=== PATIENT | male | born 1960 | race American Indian/Alaskan Native ===

== ENCOUNTER 2019-04-28 11:16 | Emergency (ER) | payer OTHER ==
[~2019-04-28] VITALS: Ht 177.8 cm; Wt 65.8 kg
[~2019-04-28 11:16] MED LIST: AMOX250 PO; CARI350 PO; CEPH500 PO; CIPR500 PO; CRUTCH4 USE; CYCL10 PO; DIAZ5 PO; HYDACE25S PR; HYDACE5 PO; NAPR375 PO; NAPR500 PO; Norco 7.5-3251 EACH PO; OMEP20ER PO; OXYACE7.5T PO; RXHYDACE PO; SULF10OPSA OS; TAMS.4ER PO; TRAM50 PO
[2019-04-28 11:31] LABS: Source, Urine Clean Catch
[2019-04-28 11:41] LABS: Bilirubin, Urine Neg (Neg); Blood, Urine Neg (Neg); Glucose Qualitative, Urine Neg (Neg); Ketones, Urine Neg (Neg); Leukocyte Esterase, Urine Neg (Neg); Nitrite, Urine Neg (Neg); Protein, Urine Neg (Neg); Urobilinogen, Urine NORM (Normal)
[2019-04-28 11:56] LABS: Appearance, Urine Clear (Clear); Color, Urine Yellow (P-Yellow)
[2019-04-28 12:03] LABS: BASOPHILS ABSOLUTE AUTO 0.08 K/mm3 (0.00-0.23); BASOPHILS PERCENT AUTO 1 % (0-2); EOSINOPHILS ABSOLUTE AUTO 0.26 K/mm3 (0.00-0.68); EOSINOPHILS PERCENT AUTO 3 % (0-6); Hematocrit 46.9 % (37.0-53.0); Hemoglobin 15.2 g/dL (13.5-17.5); IMMATURE GRAN ABSOLUTE AUTO 0.02 K/mm3 (0.00-0.10); IMMATURE GRAN PERCENT AUTO 0 % (0-1); LYMPHOCYTES ABSOLUTE AUTO 2.13 K/mm3 (0.84-5.20); LYMPHOCYTES PERCENT AUTO 28 % (21-46); MONOCYTES ABSOLUTE AUTO 0.76 K/mm3 (0.16-1.47); MONOCYTES PERCENT AUTO 10 % (4-13); Mean Corpuscular HGB 30.1 pg (26.0-34.0); Mean Corpuscular HGB Conc 32.4 g/dL (31.5-36.5); Mean Corpuscular Volume 93 fL (80-100); Mean Platelet Volume 10.8 fL (9.1-12.4); NEUTROPHILS ABSOLUTE AUTO 4.37 K/mm3 (1.96-9.15); NEUTROPHILS PERCENT AUTO 57 % (41-73); Platelet Count 248 K/mm3 (150-400); RDW Coefficient Variation 13.7 % (11.7-14.2); RDW Standard Deviation 46.5 fL (35.1-46.3); Red Blood Cell Count 5.05 M/mm3 (4.30-5.90); White Blood Cell Count 7.62 K/mm3 (4.00-11.30)
[2019-04-28 12:22] LABS: Alanine Aminotransfer (ALT/SGP 50 U/L (12-78); Albumin, Blood 3.4 g/dL (3.4-5.0); Albumin/Globulin Ratio 0.8 (0.8-1.8); Alk Phos 160 U/L (50-136); Anion Gap 3 mmol/L (6-16); Aspartate Aminotrans (AST/SGOT 33 U/L (12-37); Bilirubin, Total 0.4 mg/dL (0.1-1.0); Blood Urea Nitrogen 18 mg/dL (8-24); Bun/Creatinine Ratio 20.3 (12.0-20.0); CO2, Blood 29 mmol/L (21-32); Calcium, Blood 9.1 mg/dL (8.5-10.1); Chloride, Blood 106 mmol/L (98-108); Creatinine, Blood 0.89 mg/dL (0.60-1.20); Globulin, Blood 4.4 g/dL (2.2-4.0); Glomerular Filtration Rate >60 (60-); Glucose, Blood 88 mg/dL (70-99); Potassium, Blood 4.5 mmol/L (3.5-5.5); Sodium, Blood 138 mmol/L (136-145); Total Protein, Blood 7.8 g/dL (6.4-8.2)
[2019-04-28] MEDS ORDERED: Flomax0.4 MG PO (12:42)
== END 2019-04-28 12:50 | disposition home or self-care (01) ==
LOC: ER 11:16
PROVIDERS: Emergency Medicine
DX: N40.1 Benign prostatic hyperplasia with lower urinary tract symptoms (principal); F17.210 Nicotine dependence, cigarettes, uncomplicated
CPT/HCPCS: 36415; 76770; 80053; 81003; 83690; 85025; 96360; 99284-25; J7030

== ENCOUNTER 2019-06-03 03:45 | Emergency (ER) | payer OTHER ==
[~2019-06-03] VITALS: Ht 177.8 cm; Wt 73.5 kg
[~2019-06-03 03:45] MED LIST changes: +Flomax0.4 MG PO
== END 2019-06-03 05:18 | disposition home or self-care (01) ==
LOC: ER 03:45
DX: M25.462 Effusion, left knee (principal); F17.210 Nicotine dependence, cigarettes, uncomplicated
CPT/HCPCS: 73562-LT; 99283-25; J1885

== ENCOUNTER 2019-11-11 11:24 | Emergency (ER) | payer OTHER ==
[~2019-11-11] VITALS: Ht 177.8 cm; Wt 65.8 kg
[2019-11-11] MEDS ORDERED: Monodox100 MG PO (12:26)
== END 2019-11-11 12:35 | disposition home or self-care (01) ==
LOC: ER 11:24
DX: L02.211 Cutaneous abscess of abdominal wall (principal); F17.210 Nicotine dependence, cigarettes, uncomplicated
CPT/HCPCS: 10060; 99282-25

== ENCOUNTER 2020-11-25 17:35 | Emergency (ER) | payer OTHER ==
[~2020-11-25] VITALS: Ht 177.8 cm; Wt 981.1 kg
[~2020-11-25 17:35] MED LIST changes: +Monodox100 MG PO
== END 2020-11-25 19:19 | disposition home or self-care (01) ==
LOC: ER 17:35
DX: T15.91XA Foreign body on external eye, part unspecified, right eye, initial encounter (principal); F17.210 Nicotine dependence, cigarettes, uncomplicated; Z79.899 Other long term (current) drug therapy; Y93.89 Activity, other specified
CPT/HCPCS: 99283; A9270

== ENCOUNTER 2021-04-07 15:37 | Emergency (ER) | payer OTHER ==
[~2021-04-07] VITALS: Ht 177.8 cm; Wt 73.0 kg
[2021-04-07 16:33] LABS: BASOPHILS ABSOLUTE AUTO 0.03 K/mm3 (0.00-0.23); BASOPHILS PERCENT AUTO 0 % (0-2); EOSINOPHILS ABSOLUTE AUTO 1.14 K/mm3 (0.00-0.68); EOSINOPHILS PERCENT AUTO 8 % (0-6); Hematocrit 46.6 % (37.0-53.0); Hemoglobin 15.6 g/dL (13.5-17.5); IMMATURE GRAN ABSOLUTE AUTO 0.06 K/mm3 (0.00-0.10); IMMATURE GRAN PERCENT AUTO 0 % (0-1); LYMPHOCYTES PERCENT AUTO 9 % (21-46); MONOCYTES ABSOLUTE AUTO 0.91 K/mm3 (0.16-1.47); MONOCYTES PERCENT AUTO 6 % (4-13); Mean Corpuscular HGB 29.9 pg (26.0-34.0); Mean Corpuscular HGB Conc 33.5 g/dL (31.5-36.5); Mean Corpuscular Volume 89 fL (80-100); Mean Platelet Volume 10.7 fL (9.1-12.4); NEUTROPHILS ABSOLUTE AUTO 11.46 K/mm3 (1.96-9.15); NEUTROPHILS PERCENT AUTO 76 % (41-73); Platelet Count 283 K/mm3 (150-400); RDW Coefficient Variation 13.7 % (11.7-14.2); RDW Standard Deviation 45.3 fL (35.1-46.3); Red Blood Cell Count 5.21 M/mm3 (4.30-5.90)
[2021-04-07 16:43] LABS: Alanine Aminotransfer (ALT/SGP 127 U/L (12-78); Albumin, Blood 3.1 g/dL (3.4-5.0); Albumin/Globulin Ratio 0.6 (0.8-1.8); Alk Phos 138 U/L (50-136); Anion Gap 5 mmol/L (6-16); Aspartate Aminotrans (AST/SGOT 68 U/L (12-37); Bilirubin, Total 0.2 mg/dL (0.1-1.0); Blood Urea Nitrogen 17 mg/dL (8-24); Bun/Creatinine Ratio 18.2 (12.0-20.0); CO2, Blood 25 mmol/L (21-32); Calcium, Blood 8.7 mg/dL (8.5-10.1); Chloride, Blood 109 mmol/L (98-108); Creatinine, Blood 0.93 mg/dL (0.60-1.20); Globulin, Blood 5.1 g/dL (2.2-4.0); Glomerular Filtration Rate >60 (60-); Glucose, Blood 114 mg/dL (70-99); Potassium, Blood 3.6 mmol/L (3.5-5.5); Sodium, Blood 139 mmol/L (136-145); Total Protein, Blood 8.2 g/dL (6.4-8.2)
[2021-04-07 18:08] LABS: Source, Urine Voided
[2021-04-07 18:12] LABS: Appearance, Urine Clear (Clear); Bilirubin, Urine Neg (Neg); Blood, Urine 1+ (Neg); Color, Urine Yellow (P-Yellow); Glucose Qualitative, Urine Neg (Neg); Ketones, Urine Neg (Neg); Leukocyte Esterase, Urine 1+ (Neg); Nitrite, Urine Neg (Neg); Protein, Urine 2+ (Neg); Urobilinogen, Urine 1+ (Normal)
[2021-04-07 18:29] LABS: Bacteria Mod /hpf; Calcium Oxalate Crystals Many /hpf; Red Blood Cells, Urine 0-2 /hpf (0-2); Squamous Epithelial Cells Not Seen /hpf (Few); U Amphetamine Screen DETECTED; U Barbituate Screen Not Detected; U Benzodiazapine Screen Not Detected; U Buprenorphine Screen Not Detected; U Cannabinoids Screen Not Detected; U Cocaine Screen Not Detected; U Methadone Screen Not Detected; U Methamphetamine Screen DETECTED; U Opiates Screen Not Detected; U Oxycodone Screen Not Detected; U Phencyclidine Screen Not Detected; U Propoxyphene Screen Not Detected; White Blood Cells, Urine 0-2 /hpf (0-5)
[2021-04-07] MEDS ORDERED: CEPH500 PO (19:01)
== END 2021-04-07 19:45 | disposition home or self-care (01) ==
LOC: ER 15:37
PROVIDERS: Emergency Medicine
DX: L03.116 Cellulitis of left lower limb (principal); F19.10 Other psychoactive substance abuse, uncomplicated; R74.01 Elevation of levels of liver transaminase levels; F17.210 Nicotine dependence, cigarettes, uncomplicated
CPT/HCPCS: 36415; 71046; 80053; 81001; 85025; 87086; 96365; 96375; 99284-25; A9270; J0690; J1200; J1885; J2765; J7030; J7120

== ENCOUNTER 2021-06-28 19:12 | Emergency (ER) | payer OTHER ==
[~2021-06-28] VITALS: Ht 177.8 cm; Wt 63.5 kg
[2021-06-28 20:52] LABS: BASOPHILS ABSOLUTE AUTO 0.07 K/mm3 (0.00-0.23); BASOPHILS PERCENT AUTO 1 % (0-2); EOSINOPHILS ABSOLUTE AUTO 0.33 K/mm3 (0.00-0.68); EOSINOPHILS PERCENT AUTO 5 % (0-6); Hematocrit 48.9 % (37.0-53.0); Hemoglobin 15.9 g/dL (13.5-17.5); IMMATURE GRAN ABSOLUTE AUTO 0.02 K/mm3 (0.00-0.10); IMMATURE GRAN PERCENT AUTO 0 % (0-1); LYMPHOCYTES ABSOLUTE AUTO 1.61 K/mm3 (0.84-5.20); LYMPHOCYTES PERCENT AUTO 24 % (21-46); MONOCYTES ABSOLUTE AUTO 0.72 K/mm3 (0.16-1.47); MONOCYTES PERCENT AUTO 11 % (4-13); Mean Corpuscular HGB 29.9 pg (26.0-34.0); Mean Corpuscular HGB Conc 32.5 g/dL (31.5-36.5); Mean Corpuscular Volume 92 fL (80-100); Mean Platelet Volume 10.8 fL (9.1-12.4); NEUTROPHILS ABSOLUTE AUTO 4.06 K/mm3 (1.96-9.15); NEUTROPHILS PERCENT AUTO 60 % (41-73); Platelet Count 216 K/mm3 (150-400); RDW Coefficient Variation 13.6 % (11.7-14.2); RDW Standard Deviation 46.6 fL (35.1-46.3); Red Blood Cell Count 5.31 M/mm3 (4.30-5.90); White Blood Cell Count 6.81 K/mm3 (4.00-11.30)
[2021-06-28 21:30] LABS: Alanine Aminotransfer (ALT/SGP 141 U/L (12-78); Albumin, Blood 3.2 g/dL (3.4-5.0); Albumin/Globulin Ratio 0.7 (0.8-1.8); Alk Phos 177 U/L (50-136); Anion Gap 2 mmol/L (6-16); Aspartate Aminotrans (AST/SGOT 97 U/L (12-37); Bilirubin, Total 0.3 mg/dL (0.1-1.0); Blood Urea Nitrogen 23 mg/dL (8-24); Bun/Creatinine Ratio 22.3 (12.0-20.0); CO2, Blood 26 mmol/L (21-32); Calcium, Blood 9.2 mg/dL (8.5-10.1); Chloride, Blood 109 mmol/L (98-108); Creatinine, Blood 1.03 mg/dL (0.60-1.20); Globulin, Blood 4.5 g/dL (2.2-4.0); Glomerular Filtration Rate >60 (60-); Glucose, Blood 85 mg/dL (70-99); Potassium, Blood 4.4 mmol/L (3.5-5.5); Sodium, Blood 137 mmol/L (136-145); Total Protein, Blood 7.7 g/dL (6.4-8.2); Troponin I <0.015 ng/mL (0.000-0.040)
== END 2021-06-28 21:30 | disposition left against medical advice (07) ==
LOC: ER 19:12
PROVIDERS: Physician Assistant
DX: Z53.21 Procedure and treatment not carried out due to patient leaving prior to being seen by health care provider (principal)
CPT/HCPCS: 36415; 80053; 83690; 84484; 85025

== ENCOUNTER 2021-10-01 10:06 | Emergency (ER) | payer OTHER ==
[~2021-10-01] VITALS: Ht 177.8 cm; Wt 74.8 kg
[2021-10-01 12:37] LABS: BASOPHILS ABSOLUTE AUTO 0.06 K/mm3 (0.00-0.23); BASOPHILS PERCENT AUTO 1 % (0-2); EOSINOPHILS ABSOLUTE AUTO 0.23 K/mm3 (0.00-0.68); EOSINOPHILS PERCENT AUTO 3 % (0-6); Hematocrit 50.7 % (37.0-53.0); Hemoglobin 16.6 g/dL (13.5-17.5); IMMATURE GRAN ABSOLUTE AUTO 0.04 K/mm3 (0.00-0.10); IMMATURE GRAN PERCENT AUTO 1 % (0-1); LYMPHOCYTES ABSOLUTE AUTO 2.02 K/mm3 (0.84-5.20); LYMPHOCYTES PERCENT AUTO 23 % (21-46); MONOCYTES ABSOLUTE AUTO 0.93 K/mm3 (0.16-1.47); MONOCYTES PERCENT AUTO 11 % (4-13); Mean Corpuscular HGB 29.8 pg (26.0-34.0); Mean Corpuscular HGB Conc 32.7 g/dL (31.5-36.5); Mean Corpuscular Volume 91 fL (80-100); NEUTROPHILS ABSOLUTE AUTO 5.53 K/mm3 (1.96-9.15); NEUTROPHILS PERCENT AUTO 63 % (41-73); RDW Coefficient Variation 13.7 % (11.7-14.2); RDW Standard Deviation 46.5 fL (35.1-46.3); Red Blood Cell Count 5.57 M/mm3 (4.30-5.90); White Blood Cell Count 8.81 K/mm3 (4.00-11.30)
[2021-10-01 12:45] LABS: Mean Platelet Volume 10.9 fL (9.1-12.4); Platelet Count 194 K/mm3 (150-400)
[2021-10-01 12:56] LABS: Alanine Aminotransfer (ALT/SGP 177 U/L (12-78); Albumin, Blood 3.4 g/dL (3.4-5.0); Albumin/Globulin Ratio 0.6 (0.8-1.8); Alk Phos 138 U/L (50-136); Anion Gap 5 mmol/L (6-16); Aspartate Aminotrans (AST/SGOT 97 U/L (12-37); Bilirubin, Total 0.2 mg/dL (0.1-1.0); Blood Urea Nitrogen 12 mg/dL (8-24); Bun/Creatinine Ratio 15.7 (12.0-20.0); CO2, Blood 27 mmol/L (21-32); Calcium, Blood 9.2 mg/dL (8.5-10.1); Chloride, Blood 104 mmol/L (98-108); Creatinine, Blood 0.76 mg/dL (0.60-1.20); Globulin, Blood 5.4 g/dL (2.2-4.0); Glomerular Filtration Rate >60 (60-); Glucose, Blood 82 mg/dL (70-99); Potassium, Blood 4.5 mmol/L (3.5-5.5); Sodium, Blood 136 mmol/L (136-145); Total Protein, Blood 8.8 g/dL (6.4-8.2)
[2021-10-01 13:52] LABS: Source, Urine Clean Catch
[2021-10-01 13:56] LABS: Appearance, Urine Clear (Clear); Bilirubin, Urine Neg (Neg); Blood, Urine Neg (Neg); Color, Urine Yellow (P-Yellow); Glucose Qualitative, Urine Neg (Neg); Ketones, Urine Neg (Neg); Leukocyte Esterase, Urine Neg (Neg); Nitrite, Urine Neg (Neg); Protein, Urine Neg (Neg); Specific Gravity, Urine 1.015 (1.003-1.022); Urobilinogen, Urine NORM (Normal); pH, Urine 6.5 (5.0-8.0)
[2021-10-01] MEDS ORDERED: IBUP400 PO (15:51)
[2021-10-01] MEDS ORDERED: ACET500 PO (15:51)
[2021-10-01] MEDS ORDERED: MIRALAX119 G2 PO (15:51)
== END 2021-10-01 16:12 | disposition home or self-care (01) ==
LOC: ER 10:06
PROVIDERS: Physician Assistant
DX: M51.16 Intervertebral disc disorders with radiculopathy, lumbar region (principal); K59.00 Constipation, unspecified; F17.210 Nicotine dependence, cigarettes, uncomplicated
CPT/HCPCS: 36415; 72100; 74176; 80053; 81003; 83690; 84484; 85025; 93005; 93010; 99284-25; A9270; J1885

== ENCOUNTER 2022-05-22 10:27 | Emergency (ER) | payer OTHER ==
[~2022-05-22] VITALS: Ht 177.8 cm; Wt 78.5 kg
[~2022-05-22 10:27] MED LIST changes: +ACET500 PO; +IBUP400 PO; +MIRALAX119 G2 PO
[2022-05-22] MEDS ORDERED: NAPR500 PO (11:49)
[2022-05-22] MEDS ORDERED: Voltaren100 GM TOP (11:49)
== END 2022-05-22 12:10 | disposition home or self-care (01) ==
LOC: ER 10:27
DX: M25.562 Pain in left knee (principal); F17.200 Nicotine dependence, unspecified, uncomplicated
CPT/HCPCS: 73562-LT; A9270

== ENCOUNTER 2022-08-17 17:39 | Emergency (ER) | payer OTHER ==
[~2022-08-17] VITALS: Ht 177.8 cm; Wt 76.7 kg
[~2022-08-17 17:39] MED LIST changes: +Voltaren100 GM TOP
[2022-08-17] MEDS ORDERED: ERYT.5TO BOTHEYES (19:36)
== END 2022-08-17 19:43 | disposition home or self-care (01) ==
LOC: ER 17:39
DX: T15.91XA Foreign body on external eye, part unspecified, right eye, initial encounter (principal); F17.210 Nicotine dependence, cigarettes, uncomplicated
CPT/HCPCS: 99283; A9270

== ENCOUNTER 2023-02-03 08:12 | Emergency (ER) | payer OTHER ==
[~2023-02-03] VITALS: Ht 177.8 cm; Wt 73.5 kg
[~2023-02-03 08:12] MED LIST changes: +ERYT.5TO BOTHEYES
[2023-02-03 10:25] LABS: Albumin, Blood 3.6 g/dL (3.4-5.0); Albumin/Globulin Ratio 0.7 (0.8-1.8); Bilirubin, Total 0.3 mg/dL (0.1-1.0); Bun/Creatinine Ratio 15.5 (12.0-20.0); Calcium, Blood 8.8 mg/dL (8.5-10.1); Creatinine, Blood 1.03 mg/dL (0.60-1.20); Potassium, Blood 4.3 mmol/L (3.5-5.5); Total Protein, Blood 8.6 g/dL (6.4-8.2)
[2023-02-03 10:55] LABS: BASOPHILS ABSOLUTE AUTO 0.04 K/mm3 (0.00-0.23); BASOPHILS PERCENT AUTO 0 % (0-2); EOSINOPHILS ABSOLUTE AUTO 0.14 K/mm3 (0.00-0.68); EOSINOPHILS PERCENT AUTO 2 % (0-6); Hematocrit 41.9 % (37.0-53.0); Hemoglobin 14.1 g/dL (13.5-17.5); IMMATURE GRAN ABSOLUTE AUTO 0.01 K/mm3 (0.00-0.10); IMMATURE GRAN PERCENT AUTO 0 % (0-1); LYMPHOCYTES ABSOLUTE AUTO 1.71 K/mm3 (0.84-5.20); LYMPHOCYTES PERCENT AUTO 19 % (21-46); MONOCYTES ABSOLUTE AUTO 1.11 K/mm3 (0.16-1.47); MONOCYTES PERCENT AUTO 12 % (4-13); Mean Corpuscular HGB 29.5 pg (26.0-34.0); Mean Corpuscular HGB Conc 33.7 g/dL (31.5-36.5); Mean Corpuscular Volume 88 fL (80-100); Mean Platelet Volume 10.8 fL (9.1-12.4); NEUTROPHILS ABSOLUTE AUTO 5.93 K/mm3 (1.96-9.15); NEUTROPHILS PERCENT AUTO 66 % (41-73); Platelet Count 257 K/mm3 (150-400); RDW Coefficient Variation 13.2 % (11.7-14.2); Red Blood Cell Count 4.78 M/mm3 (4.30-5.90); White Blood Cell Count 8.94 K/mm3 (4.00-11.30)
[2023-02-03] MEDS ORDERED: Cephalexin500 M1 PO (11:09)
== END 2023-02-03 11:25 | disposition home or self-care (01) ==
LOC: ER 08:12
PROVIDERS: Student in an Organized Health Care Education/Training Program
DX: L03.116 Cellulitis of left lower limb (principal); I10 Essential (primary) hypertension; F17.200 Nicotine dependence, unspecified, uncomplicated
CPT/HCPCS: 36415; 73562-LT; 73610; 80053; 85025; J1885

== ENCOUNTER 2023-06-19 06:43 | Emergency (ER) | payer OTHER ==
[~2023-06-19] VITALS: Ht 175.3 cm; Wt 73.5 kg
[~2023-06-19 06:43] MED LIST changes: +Cephalexin500 M1 PO
[2023-06-19] MEDS ORDERED: Clindamycin HC150 MG PO ×2 (08:31→08:32)
[2023-06-19 09:37] VITALS: BP 164/94
== END 2023-06-19 09:38 | disposition home or self-care (01) ==
LOC: ER 06:43
DX: L03.116 Cellulitis of left lower limb (principal); F17.200 Nicotine dependence, unspecified, uncomplicated; W46.1XXA Contact with contaminated hypodermic needle, initial encounter; Y92.096 Garden or yard of other non-institutional residence as the place of occurrence of the external cause
CPT/HCPCS: 73562-LT; 99283-25; A9270; J0736

== ENCOUNTER 2023-10-22 11:50 | Emergency (ER) | payer OTHER ==
[~2023-10-22] VITALS: Ht 175.3 cm; Wt 74.4 kg
[~2023-10-22 11:50] MED LIST changes: +Clindamycin HC150 MG PO
[2023-10-22 11:54] VITALS: BP 161/99
[2023-10-22 12:18] LABS: BASOPHILS ABSOLUTE AUTO 0.06 K/mm3 (0.00-0.23); BASOPHILS PERCENT AUTO 1 % (0-2); EOSINOPHILS ABSOLUTE AUTO 0.43 K/mm3 (0.00-0.68); EOSINOPHILS PERCENT AUTO 5 % (0-6); Hematocrit 44.5 % (37.0-53.0); Hemoglobin 14.9 g/dL (13.5-17.5); IMMATURE GRAN ABSOLUTE AUTO 0.02 K/mm3 (0.00-0.10); IMMATURE GRAN PERCENT AUTO 0 % (0-1); LYMPHOCYTES ABSOLUTE AUTO 2.18 K/mm3 (0.84-5.20); LYMPHOCYTES PERCENT AUTO 23 % (21-46); MONOCYTES ABSOLUTE AUTO 1.08 K/mm3 (0.16-1.47); MONOCYTES PERCENT AUTO 12 % (4-13); Mean Corpuscular HGB 29.4 pg (26.0-34.0); Mean Corpuscular HGB Conc 33.5 g/dL (31.5-36.5); Mean Corpuscular Volume 88 fL (80-100); Mean Platelet Volume 9.6 fL (9.1-12.4); NEUTROPHILS ABSOLUTE AUTO 5.62 K/mm3 (1.96-9.15); NEUTROPHILS PERCENT AUTO 60 % (41-73); Platelet Count 299 K/mm3 (150-400); RDW Coefficient Variation 13.5 % (11.7-14.2); RDW Standard Deviation 43.8 fL (35.1-46.3); Red Blood Cell Count 5.06 M/mm3 (4.30-5.90); White Blood Cell Count 9.39 K/mm3 (4.00-11.30)
[2023-10-22 12:42] LABS: Albumin, Blood 3.2 g/dL (3.4-5.0); Albumin/Globulin Ratio 0.6 (0.8-1.8); Bilirubin, Total 0.3 mg/dL (0.1-1.0); Bun/Creatinine Ratio 17.4 (12.0-20.0); Calcium, Blood 9.4 mg/dL (8.5-10.1); Creatinine, Blood 0.92 mg/dL (0.60-1.20); Globulin, Blood 5.5 g/dL (2.2-4.0); Potassium, Blood 4.3 mmol/L (3.5-5.5); Total Protein, Blood 8.7 g/dL (6.4-8.2)
[2023-10-22 15:09] LABS: Source, Urine Clean Catch
[2023-10-22 15:25] LABS: Appearance, Urine Clear (Clear); Bilirubin, Urine Neg (Neg); Blood, Urine Neg (Neg); Color, Urine Yellow (P-Yellow); Glucose Qualitative, Urine Neg (Neg); Ketones, Urine Neg (Neg); Leukocyte Esterase, Urine Neg (Neg); Nitrite, Urine Neg (Neg); Protein, Urine Neg (Neg); Specific Gravity, Urine 1.015 (1.003-1.022); Urobilinogen, Urine NORM (Normal)
[2023-10-22] MEDS ORDERED: CYCL10 PO (15:53)
== END 2023-10-22 16:07 | disposition home or self-care (01) ==
LOC: ER 11:50
PROVIDERS: Physician Assistant
DX: S39.012A Strain of muscle, fascia and tendon of lower back, initial encounter (principal); F17.200 Nicotine dependence, unspecified, uncomplicated; X58.XXXA Exposure to other specified factors, initial encounter
CPT/HCPCS: 74177; 80053; 81003; 83690; 85025; 99284-25; Q9967

== ENCOUNTER 2023-10-30 12:15 | Emergency (ER) | payer OTHER ==
[~2023-10-30] VITALS: Ht 177.8 cm; Wt 73.5 kg
[2023-10-30 12:33] VITALS: BP 159/98
[2023-10-30] MEDS ORDERED: CEPH500 PO (14:08)
[2023-10-30] MEDS ORDERED: IBUP800 PO (14:08)
== END 2023-10-30 14:40 | disposition home or self-care (01) ==
LOC: ER 12:15
DX: L03.116 Cellulitis of left lower limb (principal); F17.200 Nicotine dependence, unspecified, uncomplicated
CPT/HCPCS: 99283; A9270

== ENCOUNTER 2024-01-08 23:52 | Emergency (ER) | payer OTHER ==
[~2024-01-08] VITALS: Ht 175.3 cm; Wt 73.5 kg
[~2024-01-08 23:52] MED LIST changes: +IBUP800 PO
[2024-01-09 00:12] VITALS: BP 181/125
[2024-01-09] MEDS ORDERED: Trimethoprim/Sulfamethoxazole DS Tab PO ONE (00:25)
[2024-01-09] MEDS ORDERED: Cephalexin Monohydrate 500 MG Cap PO ONE (00:25)
[2024-01-09] MEDS ORDERED: Bactrim Ds Tab1 EACH PO (00:30)
[2024-01-09] MEDS ORDERED: Keflex500 MG PO (00:30)
[2024-01-09] MEDS ORDERED: Ibuprofen 600 MG Tab PO ONE (00:35)
== END 2024-01-09 00:44 | disposition left against medical advice (07) ==
LOC: ER 23:52
DX: L03.115 Cellulitis of right lower limb (principal); F17.200 Nicotine dependence, unspecified, uncomplicated
CPT/HCPCS: 99282; A9270

== ENCOUNTER 2025-09-23 08:18 | Emergency (ER) | payer OTHER ==
[~2025-09-23] VITALS: Ht 177.8 cm; Wt 76.7 kg
[~2025-09-23 08:18] MED LIST changes: +Bactrim Ds Tab1 EACH PO; +Keflex500 MG PO
[2025-09-23 09:24] VITALS: BP 171/111
[2025-09-23] MEDS ORDERED: Fluorescein Sod 1MG Opth Strips LEFTEYE ONE (09:30)
[2025-09-23] MEDS ORDERED: Tetracaine HCl/Pf 0.5% Opth Soln 4 ml LEFTEYE ONE (09:30)
== END 2025-09-23 11:01 | disposition home or self-care (01) ==
LOC: ER 08:18
DX: H57.12 Ocular pain, left eye (principal); I10 Essential (primary) hypertension; R44.1 Visual hallucinations; F17.200 Nicotine dependence, unspecified, uncomplicated; Z79.899 Other long term (current) drug therapy
CPT/HCPCS: 99283; A9270